=== PATIENT | male | born 1955 | race Caucasian/White ===

== ENCOUNTER → 2020-09-08 | Outpatient (CLI) | payer OTHER ==
[~2020-09-08] MED LIST: ASPIRIN325 PO; COZAAR 50 MG TA50 M2 PO; DIOVAN HCT 80-1 EACH PO; LIPITOR10 MG PO; METFORMIN HCL500 MG PO; UNICOMPLEX M TA1 TA1 PO; VIAGRA50 MG PO
== END ==
LOC: M.ULTRA 09:08
PROVIDERS: ATTEND Registered Nurse Diabetes Educator
DX: K80.20 Calculus of gallbladder without cholecystitis without obstruction (principal); R10.13 Epigastric pain; R11.2 Nausea with vomiting, unspecified; K76.0 Fatty (change of) liver, not elsewhere classified